=== PATIENT | male | born 1940 | race Caucasian/White ===

== ENCOUNTER 2020-03-03 16:53 | Emergency (ER) | payer OTHER ==
[~2020-03-03] VITALS: Ht 170.2 cm; Wt 81.6 kg
[2020-03-03] MEDS ORDERED: TOPROL XL100 M1 (17:43)
[2020-03-03] MEDS ORDERED: [UNRECOGNIZED DRUG - OTHER] (17:43)
[2020-03-03] MEDS ORDERED: TAMS0.4C (17:44)
[2020-03-03] MEDS ORDERED: LIPITOR20 MG (17:44)
[2020-03-03] MEDS ORDERED: JANUMET XR 50-1 EAC1 (17:44)
[2020-03-03] MEDS ORDERED: NORVASC5 MG (17:45)
[2020-03-03] MEDS ORDERED: ATACAND HCT 321 EAC1 (17:45)
== END 2020-03-03 18:36 | disposition home or self-care (01) ==
LOC: ER 16:53
DX: S00.03XA Contusion of scalp, initial encounter (principal); M54.2 Cervicalgia; R42 Dizziness and giddiness; W18.09XA Striking against other object with subsequent fall, initial encounter; Y93.89 Activity, other specified; Y92.018 Other place in single-family (private) house as the place of occurrence of the external cause; Y99.8 Other external cause status